=== PATIENT | female | born 1960 | race Caucasian/White ===

== ENCOUNTER 2021-01-19 10:06 | Outpatient (CLI) | payer MEDICAID, SELFPAY ==
--- NOTE | 2021-01-19 | DI.RAD_ITS ---
Exam(s) XR WRIST RT COMPL NAVICULAR EXAM: XR WRIST RT COMPL NAVICULAR CLINICAL HISTORY: PAIN IN RT WRIST, M25.531, CONCERN FOR FRACTURE VS STRAIN. TECHNIQUE: 2D digital imaging was performed. COMPARISON: No exams were available for comparison FINDINGS: No evidence fracture or dislocation. Mild negative ulnar variance is noted. Moderate-severe degenerative changes are noted at the 1st carpometacarpal joint. IMPRESSION: DATA REPOSITORY: RADIATION DOSE DELIVERED:
--- NOTE | 2021-01-19 10:08 | DI.RAD_ITS ---
Exam(s) XR HAND RT COMPLETE EXAM: XR HAND RT COMPLETE CLINICAL HISTORY: PAIN IN RT HAND, M79.641, CONCERN FOR FRACTURE VS STRAIN. TECHNIQUE: 2D digital imaging was performed. COMPARISON: No exams were available for comparison FINDINGS: No evidence of fracture lines in the hand. Small calcific densities are seen off the medial aspect o f the DIP joints of the 2nd and 3rd fingers. Degenerative changes seen in the DIP joint the 2nd fing er. This is best seen on the lateral view. Midshaft deformity of the 5th metacarpal is possibly rel ated to a prior healed fracture site no erosions. No ominous osseous lesions. IMPRESSION: DATA REPOSITORY: RADIATION DOSE DELIVERED:
== END 2021-01-19 10:26 ==
PROVIDERS: PCP Nurse Practitioner; Visit Provider Physician Assistant Medical
DX: M79.641 Pain in right hand (principal); M25.531 Pain in right wrist; M25.741 Osteophyte, right hand; M19.041 Primary osteoarthritis, right hand
CPT/HCPCS: 73110; 73130